=== PATIENT | female | born 1970 ===

== ENCOUNTER 2024-11-24 10:06 | Outpatient (CLI) | payer OTHER, SELFPAY ==
[2024-11-25 20:00] LABS: HBs Antibody, Quant >1000.0 mIU/mL (See Note); Hepatitis B Surface Ab Positive (See Note)
== END 2024-11-24 10:07 | disposition home or self-care (01) ==
LOC: LBO 10:06
PROVIDERS: Visit Provider Student in an Organized Health Care Education/Training Program
DX: Z02.1 Encounter for pre-employment examination (principal)
CPT/HCPCS: 36415; 86706; 86787; 87340